=== PATIENT | male | born 1995 | race Caucasian/White ===

== ENCOUNTER 2017-05-18 07:37 | Emergency (ER) | payer BC, SELFPAY ==
[2017-05-18 07:38] VITALS: BP 136/88; PULSE 82; RESP 16; TEMP 36.8; O2SAT 99
--- NOTE | 2017-05-18 07:51 | RAD_ITS ---
STUDY: X-RAY CHEST REASON FOR EXAM: Male, 21 years old. 2 day history of cough. TECHNIQUE: PA and lateral views of the chest. COMPARISON: None. FINDINGS: The lungs are clear and expanded. There is no demonstrated pleural abnormality. Normal size heart. Normal mediastinum and aida. Normal visualized pulmonary arteries. Normal visualized aortic arch and descending thoracic aorta. Normal visualized thoracic spine. Normal visualized ribs, clavicles, and shoulders. There is no demonstrated abnormality of the visualized soft tissue structures of the upper abdomen. RAD/Chest PA and Lateral IMPRESSION: Normal x-ray examination of the chest. Electronically Signed: Alfredo Minaya MD at 8:58 EST Tel [phone], Service support ,
--- NOTE | 2017-05-18 08:10 | ED.DCSUM_ITS ---
- ER Visit Summary Date of Service: 05/18/17 Chief Complaint: Cough History of Present Illness: The patient is a [address] Gualberto Hare III. He reports that he has been sick off and on all winter. His most recent illness began 2 days ago. He developed a nonproductive cough. He denies any fever or chills. Is a sore throat that is 5 out of 10 severity. He has a headache that is 8 out of 10 severity. He denies any shortness of breath or myalgias. Physical Examination: Vitals: Stable. Afebrile. General: Well-nourished and well-developed. Head: Normocephalic atraumatic. HEENT: Pharyngeal erythema without tonsillar enlargement, exudate, or peritonsillar abscess. Neck: Supple, no lymphadenopathy. No JVD. Nontender. Cardiovascular: Regular rate and rhythm. No murmurs. Respiratory: No respiratory distress. Clear to auscultation bilaterally. Abdominal: Soft, nontender, nondistended, normal bowel sounds. No guarding, rebound, or peritoneal signs. Back: Nontender. Extremities: Nontender, no edema. Skin: Normal color, no rash. Neurologic: Alert and oriented ?3. Cranial nerves II through XII are intact. Normal strength and sensation. Psych: Normal affect. Test Results: Chest xray is normal. Emergency Department Course and Treatment: Patient presented to the emergency department specifically asking for an antibiotic. I had a prolonged discussion with him that it is not indicated and will not be helpful. Treatment Plan: Patient will be discharged with symptomatic care. Instructed to follow-up with Dr. Gualberto Hare III in 1 week if not improving. Disposition: To home in improved and stable condition. Impression: 1. URI. This note was generated with [employer] dictation software. It may contain incorrect words, spelling, and punctuation that were not noted in review of the chart prior to signing ED Disposition - Plan for ED Patient: Chief Complaint: Cold Sx Instructions: ED Upper Resp Infec No Abx Tx Referrals: Gualberto Hare III, MD [Primary Care Provider] - 1 Week if not improving
== END 2017-05-18 08:30 | disposition home or self-care (01) ==
LOC: ED 07:52
PROVIDERS: Emergency Provider Emergency Medicine; Family Provider Family Medicine; PCP Family Medicine
DX: J06.9 Acute upper respiratory infection, unspecified (principal); Z82.5 Family history of asthma and other chronic lower respiratory diseases
CPT/HCPCS: 71046; 99282

== ENCOUNTER 2018-06-04 18:25 | Emergency (ER) | payer BC, SELFPAY ==
[2018-06-04 18:25] VITALS: BP 151/99; PULSE 85; RESP 16; TEMP 37; O2SAT 100; BMI 22.8
--- NOTE | 2018-06-04 18:50 | CT_ITS ---
STUDY: CT BRAIN WITHOUT CONTRAST REASON FOR EXAM: Male, 22 years old. Fall down stairs, headache, memory loss, confusion, questionable loss of consciousness RADIATION DOSAGE (If Supplied By Facility): CTDIvol = ( 44.99 ) mGy, DLP = ( 796.11 ) mGycm TECHNIQUE: Transaxial CT imaging of the brain was performed without administration of intravenous contrast material. Individualized dose optimization techniques were used for this CT. COMPARISON: None. FINDINGS: Normal soft tissue structures. Normal calvarium. Normal size ventricles and extra-axial spaces for the patient's age. Normal white matter tracts of the cerebral hemispheres. Normal basal ganglia and thalami. Normal brainstem. Normal cerebellum. There is no intracranial hemorrhage. There are no findings of an acute ischemic infarction. Normal visualized paranasal sinuses. CT/Brain/Head without Contrast IMPRESSION: 1. No acute intracranial hemorrhage or mass effect. Electronically Signed: Jose Daniel Rodríguez MD at 19:20 EST , Service support ,
--- NOTE | 2018-06-04 18:51 | ED.VISSUMM ---
- ER Visit Summary Date of Service: 06/04/18 Chief Complaint: Head injury History of Present Illness: The patient is a 22 M who fell down some wooden steps on May 30. Patient does not remember if he got knocked out. He still has mild headache and difficulty concentrating. He states his hand eye coordination still is not normal. He has some mild nausea and light sensitivity. He is been taking Excedrin as needed for headache. Physical Examination: Vital signs significant for blood pressure 151/99, otherwise unremarkable. Head neck examination reveals no obvious external sign of trauma. No C-spine tenderness. Heart is regular rate and rhythm. Lungs sounds clear. Abdomen is soft nontender. Neuro exam reveals good strength and sensation on testing. Test Results: CT head shows no acute hemorrhage or mass-effect. Emergency Department Course and Treatment: Test results discussed with the patient. I did explain to him that he does have a concussion based on his symptoms. We will write him for anti-inflammatories. He will continue Excedrin if needed. He declines any nausea medicine. Treatment Plan: [] Disposition: Discharge Impression: Concussion This note was generated with [employer] dictation software. It may contain incorrect words, spelling, and punctuation that were not noted in review of the chart prior to signing ED Disposition - Plan for ED Patient: Referrals: Gualberto Hare III, MD [Primary Care Provider] -
--- NOTE | 2018-06-04 19:34 | ED.DEP ---
ED Disposition - Plan for ED Patient: Disposition: Home or Assisted Living Instructions: ED Concussion Prescriptions: Naproxen [Naprosyn] 500 mg PO BID PRN PRN #20 tablet PRN Reason: Pain Referrals: Gualberto Hare III, MD [Primary Care Provider] - 1 Week
[2018-06-04 20:13] VITALS: BP 136/82; PULSE 71; RESP 16; O2SAT 97
== END 2018-06-04 20:13 | disposition home or self-care (01) ==
PROVIDERS: Emergency Provider Emergency Medicine; Family Provider Family Medicine; PCP Family Medicine
DX: S06.0X9A Concussion with loss of consciousness of unspecified duration, initial encounter (principal); W10.8XXA Fall (on) (from) other stairs and steps, initial encounter; Y93.9 Activity, unspecified; Y92.9 Unspecified place or not applicable
CPT/HCPCS: 70450; 99282

== ENCOUNTER 2019-01-29 10:55 | Emergency (ER) | payer BC, SELFPAY ==
[2019-01-29 10:56] VITALS: BP 135/82; PULSE 106; RESP 14; TEMP 36.6; O2SAT 99; BMI 18.8
--- NOTE | 2019-01-29 11:08 | ED.RN ---
PER DR NEGRON CRISIS IS AWARE PT IS HERE AND NEEDS EVAL.
--- NOTE | 2019-01-29 11:09 | ED.DCSUM_ITS ---
- ER Visit Summary Date of Service: 01/29/19 Chief Complaint: Depressed and suicidal History of Present Illness: The patient is a 23 M history of depression. Patient is not real forthcoming with information. Reportedly police were called by the landlord who was concerned for the patient's mental well-being. There was some type of issue between the patient and his brother. Patient had loaded off a shotgun and a 22 pistol but did not make any threats to the police about this. There were weapons on scene. I did speak with community relations police lieutenant that was involved with the patient. At this time there is no known suicide note or text. Again patient is not real forthcoming with information. He denies any psychiatric meds currently. Was on antidepressants in the past. Physical Examination: Young male no acute distress vital signs stable afebrile. He is calm and cooperative at the time. HEENT exam unremarkable. Neck nontender. Lungs clear to auscultation bilaterally. Heart regular rhythm no murmur. Chest wall nontender. Abdomen soft nontender. Patient is moving all 4 extremities. Neurovascular intact. No edema. No wounds. No track espinosa. Back is nontender. Neurologically is awake and alert with no focal motor or sensory deficits. He is somewhat withdrawn. Test Results: Unremarkable white count of 9. Tox screen is negative.. Chemistries unremarkable except for a potassium of 3.0 and alcohol negative. Emergency Department Course and Treatment: Patient will undergo ED mental health evaluation. He has been pink slipped by the police department. I have crisis personnel already on page. Patient doing well on repeat exam at 12:21 PM. Treatment Plan: Discussed the patient's care with the counseling center personnel after they evaluating. I am concerned that he had loaded weapons at home and is not forthcoming with information. Both myself and the crisis personnel feel the patient should be admitted. He is medically cleared for psychiatric transfer and admission. Disposition: Evaluation for placement in psychiatric facility. Impression: Acute on chronic depression Suicidal ideation This note was generated with [employer] dictation software. It may contain incorrect words, spelling, and punctuation that were not noted in review of the chart prior to signing ED Disposition - Plan for ED Patient: Referrals: Gualberto Hare III, MD [STAFF PHYSICIAN] -
[2019-01-29 11:27] LABS: Absolute Lymphocyte Count 1.82 X10^3/uL (0.83-4.51); Absolute Neutrophil Count 6.8 X10^3/uL (2.0-7.7); Basophil# 0.04 X10^3/uL; Basophil% 0.4 % (0-1); Eosinophil# 0.02 X10^3/uL; Eosinophils% 0.2 % (0-5); Hematocrit 44.3 % (40-54); Lymphocyte # 1.82 X10^3/ul (4.0); Lymphocyte % 19.3 % (19-41); Mean Corp Hgb Conc 33.9 g/dL (32-36); Mean Corpuscular Hgb 28.6 pg (27.0-32.0); Mean Corpuscular Volume 84.4 fL (80-94); Mean Platelet Vol. 10.8 fl (6.2-12.0); Monocyte# 0.67 X10^3/uL; Monocyte% 7.1 % (0-10); NRBC Flagged by Analyzer 0 % (0-5); Neutrophil # 6.81 X10^3/uL (2.7-7.7); Neutrophil % 72.2 % (47-70); Platelet Count 260 K/mm3 (150-450); RBC Distribution Width CV 13.6 % (11.6-14.6); RBC Distribution Width SD 40.7 fl (35.1-43.9); Red Blood Count 5.25 M/mm3 (4.6-6.2); White Blood Count 9.4 K/mm3 (4.4-11.0)
--- NOTE | 2019-01-29 11:35 | NURSING ---
PT mother stopped by to see pt, pt does not want visitors. Informed mother we would call when he is ready to talk. Noemi (mother) [phone], George (father) [phone].
[2019-01-29 11:41] LABS: Anion Gap 7 (5-15); BUN 11 mg/dL (7-18); BUN/Creat Ratio 13.6 RATIO (10-20); Calcium,Total 9.2 mg/dL (8.5-10.1); Chloride 108 mmol/L (98-107); Creatinine, Serum 0.81 mg/dL (0.70-1.30); EST Glomerular Filtration Rate 126 mL/min (>60); Est Glom Filt Rate - Afr Amer 152 mL/min (>60); Estimated Creatinine Clearance 122.85 ml/min; Glucose 99 mg/dL (74-106); Sodium Level 145 mmol/L (136-145)
[2019-01-29 12:05] LABS: Alcohol, Blood (Medical)-Serum < 3.0 mg/dL
[2019-01-29 12:27] LABS: Amphetamine Urine VISTA NEGATIVE (<1000 ng/mL); Barbiturate Urine VISTA NEGATIVE (< 200 ng/mL); Benzodiazepine Urine VISTA NEGATIVE (< 200 ng/mL); Cocaine Urine VISTA NEGATIVE (< 300 ng/mL); Ecstacy Urine VISTA NEGATIVE (< 500 ng/mL); Methadone Urine VISTA NEGATIVE (< 300 ng/mL); PCP Urine VISTA NEGATIVE (< 25 ng/mL); THC Urine VISTA NEGATIVE (< 50 ng/mL); Vista UDS pH Range 6
--- NOTE | 2019-01-29 12:29 | ED.RN ---
CRISIS IS HERE
[2019-01-29 13:59] VITALS: BP 136/80; PULSE 99; RESP 16; O2SAT 99
[2019-01-29 14:00] VITALS: BP 136/80; PULSE 99; RESP 16; O2SAT 99
[2019-01-29 16:00] VITALS: RESP 16
[2019-01-29 17:50] VITALS: BP 138/80; PULSE 99; RESP 16; O2SAT 99
== END 2019-01-29 17:37 ==
PROVIDERS: Emergency Provider Emergency Medicine; Family Provider Family Medicine; PCP Family Medicine
DX: F32.9 Major depressive disorder, single episode, unspecified (principal); R45.851 Suicidal ideations
CPT/HCPCS: 80048; 80307; 80320; 85025; 99284; G0480

== ENCOUNTER 2019-10-21 06:48 | Emergency (ER) | payer OTHER, SELFPAY ==
[2019-10-21 06:49] VITALS: BP 119/63; PULSE 68; RESP 20; TEMP 37.1; O2SAT 100; BMI 22.1
--- NOTE | 2019-10-21 06:57 | ED.DCSUM_ITS ---
History of Present Illness Chief Complaint: Abd Pain Informant: Patient Onset: Today Context: Gradual Onset Timing: Waxes and wanes Current Severity: Moderate Maximum Severity: Severe Narrative: Patient present secondary to lower abdominal pain and vomiting. States he did not have much of an appetite last evening but did eat dinner. Actually and this morning he woke with severe lower abdominal pain and vomiting. He did have a normal bowel movement. He states he felt warm but did not measure a fever. He denies any prior abdominal surgeries. Past Medical History - Allergies and Home Meds Allergies/Adverse Reactions: Allergies No Known Allergies Allergy (Verified 10/21/19 06:53) Primary Care Physician: Gualberto Hare III, MD [Primary Care Provider] - Past Medical History: None Smoking Status: Never smoker Alcohol: None Review of Systems General: Reports: Fever, Subjective Eyes: Denies: Visual changes - bilaterally ENT: Denies: Bilateral ear pain Cardiovascular: Denies: Chest pain Respiratory: Denies: Dyspnea, Cough Gastrointestinal: Reports: Abdominal pain, Nausea, Vomiting. Denies: Diarrhea Genitourinary: Denies: Dysuria Musculoskeletal: Denies: Swelling, Extremity Pain Skin: Denies: Rash Hematologic: Denies: Easy bruising, Easy bleeding Allergy: Denies: Uticaria Physical Exam Vital Signs/Narrative: Vital Signs Temp Pulse Resp BP Pulse Ox 10/21/19 06:49 98.8 F 68 20 H 119/63 100 Inital Vital Signs reviewed: Yes General: Well nourished, Well developed Head: Normocephalic ENT: Moist mucous membranes Neck: Supple Cardiovascular: Regular rate, Regular rhythm Respiratory: No distress, CTA bilaterally Abdomen: Soft, Tender - Moderate diffuse tenderness to palpation., Guarding - Voluntary guarding, Hypoactive bowel sounds Extremities: Nontender Skin: Normal color Neurological: Alert, Oriented x3 Psychological: - - Anxious Diagnostic/Tx/Re-eval Impressions Abdomen/Pelvis CT 10/21/19 07:35 IMPRESSION: Normal enhanced CT of the abdomen and pelvis. Electronically Signed: Raheem Cameron, at 8:22 EDT Tel , Service support , 10/21/19 07:35 Abdomen/Pelvis W IV Cont ONLY [CT] Stat Laboratory Results 10/21/19 10/21/19 10/21/19 06:58 06:58 10:06 WBC 8.2 RBC 5.08 Hgb 14.7 Hct 43.1 MCV 84.8 MCH 28.9 MCHC 34.1 RDW Std Deviation 35.7 RDW Coeff of Monalisa 11.7 Plt Count 223 MPV 11.2 Immature Gran % (Auto) 0.200 Neut % (Auto) 78.8 H Lymph % (Auto) 15.4 L [place] % (Auto) 4.9 Eos % (Auto) 0.5 Baso % (Auto) 0.2 Absolute Neuts (auto) 6.5 Absolute Lymphs (auto) 1.26 Nucleated RBC % 0 Sodium 140 Potassium 3.5 Chloride 106 Carbon Dioxide 27.0 Anion Gap 7 BUN 17 Creatinine 0.89 Estim Creat Clear Calc 116.22 Est GFR (MDRD) Af Amer 135 Est GFR (MDRD) Non-Af 111 BUN/Creatinine Ratio 19.0 Glucose 114 H Calcium 9.7 Total Bilirubin 0.90 AST 15 ALT 21 Alkaline Phosphatase 63 Total Protein 8.3 H Albumin 5.2 H Globulin 3.1 Albumin/Globulin Ratio 1.7 Lipase 138 Urine Color Yellow Urine Clarity Clear Urine pH 7.0 Ur Specific [place] 1.010 Urine Protein 15 H Urine Glucose (UA) Normal Urine Ketones 150 H Urine Occult Blood Negative Urine Nitrite Negative Urine Bilirubin Negative Urine Urobilinogen Normal Ur Leukocyte Esterase 25 H Urine RBC 0 SEEN Urine WBC 0-5 SEEN Ur Squamous Epith Cells 0-5 SEEN Urine Bacteria RARE Urine Mucus 0 SEEN - Medical Decision Making Patient initially given IV fluids along with morphine, Toradol, and Zofran. On repeat evaluation he reported only minimal improvement in his pain. He was given IM Bentyl and IV Dilaudid. CT scan was performed. At this time patient is resting comfortably. He is received 1 dose of p.o. [place] here and tolerated that well. He continues to have some pain and cramping in his lower abdomen. Lab work, urinalysis, and CT imaging is reviewed with the patient and family at bedside. He will be given prescriptions for [place], Zofran, and Bentyl. He was given return instructions. ED Disposition - Plan for ED Patient: Disposition: Home or Assisted Living Diagnosis: Abdominal pain Instructions: ED Unknown Causes of Abdominal Pain Male Prescriptions: Dicyclomine HCl [Bentyl] 20 mg PO TIDAC #20 cap Transmission Status: Pending to [facility] Hydrocodone Bitart/Apap 5-325 [[place] 5MG-325MG] 1 tablet PO Q6H PRN PRN 3 Days #10 tablet PRN Reason: Pain Transmission Status: Sent to [facility] Ondansetron [Zofran Odt] 4 mg PO Q8H PRN PRN #10 tab PRN Reason: Nausea Transmission Status: Pending to [facility] Referrals: Gualberto Hare III, MD [Primary Care Provider] - 3-5 Days if not improving
[2019-10-21] MEDS: Ketorolac 30 MG/ML Syringe IV (07:00)
[2019-10-21] MEDS: Morphine 4 MG/ML Syringe IV (07:00)
[2019-10-21] MEDS: 0.9% Normal Saline 1,000 ML 150 ML IV (07:03)
[2019-10-21] MEDS: Ondansetron 4 MG/2 ML Vial IV (07:04)
[2019-10-21 07:12] LABS: Absolute Lymphocyte Count 1.26 X10^3/uL (0.83-4.51); Absolute Neutrophil Count 6.5 X10^3/uL (2.0-7.7); Basophil# 0.02 X10^3/uL; Basophil% 0.2 % (0-1); Eosinophil# 0.04 X10^3/uL; Eosinophils% 0.5 % (0-5); Hematocrit 43.1 % (40-54); Hemoglobin 14.7 g/dL (13.0-16.5); Lymphocyte # 1.26 X10^3/ul (4.0); Lymphocyte % 15.4 % (19-41); Mean Corp Hgb Conc 34.1 g/dL (32-36); Mean Corpuscular Hgb 28.9 pg (27.0-32.0); Mean Corpuscular Volume 84.8 fL (80-94); Mean Platelet Vol. 11.2 fl (6.2-12.0); Monocyte% 4.9 % (0-10); NRBC Flagged by Analyzer 0 % (0-5); Neutrophil # 6.45 X10^3/uL (2.7-7.7); Neutrophil % 78.8 % (47-70); Platelet Count 223 K/mm3 (150-450); RBC Distribution Width CV 11.7 % (11.6-14.6); RBC Distribution Width SD 35.7 fl (35.1-43.9); Red Blood Count 5.08 M/mm3 (4.6-6.2); White Blood Count 8.2 K/mm3 (4.4-11.0)
[2019-10-21 07:29] LABS: ALB/GLOB Ratio 1.7 RATIO (0.9-2.4); AST(SGOT) 15 U/L (15-37); Alanine Aminotransfer ALT/SGPT 21 U/L (16-61); Albumin, Serum 5.2 g/dL (3.2-5.0); Alkaline Phosphatase 63 U/L (45-117); Anion Gap 7 (5-15); BUN 17 mg/dL (7-18); Calcium,Total 9.7 mg/dL (8.5-10.1); Chloride 106 mmol/L (98-107); Creatinine, Serum 0.89 mg/dL (0.70-1.30); EST Glomerular Filtration Rate 111 mL/min (>60); Est Glom Filt Rate - Afr Amer 135 mL/min (>60); Estimated Creatinine Clearance 116.22 ml/min; Globulin 3.1 g/dL (2.2-4.2); Glucose 114 mg/dL (74-106); Lipase 138 U/L (73-393); Potassium 3.5 mmol/L (3.5-5.1); Protein, Total 8.3 g/dL (6.4-8.2); Sodium Level 140 mmol/L (136-145)
--- NOTE | 2019-10-21 07:35 | CT_ITS ---
STUDY: CT ABDOMEN AND PELVIS WITH CONTRAST REASON FOR EXAM: Male, 24 years old. ABD PAIN, VOMITING RADIATION DOSAGE (If Supplied By Facility): CTDIvol = ( 6.02 ) mGy, DLP = ( 285.95 ) mGycm TECHNIQUE: Transaxial images were obtained from the dome of the diaphragm to the symphysis pubis without oral contrast. IV 100mL Isovue-300 was administered. Sagittal and coronal images were reconstructed. Individualized dose optimization techniques were used for this CT. COMPARISON: None. FINDINGS: The visualized lung bases are unremarkable. The visualized portions of the heart are within normal limits. Normal liver. Normal gallbladder and extrahepatic biliary system. Normal spleen. Normal pancreas. Normal bilateral adrenal glands. Normal right kidney. Normal left kidney. Normal visualized stomach. Normal small intestine. Normal colon. The appendix is visualized and appears normal. Normal abdominal aorta. Normal inferior vena cava. Normal retroperitoneum. Normal urinary bladder. Normal abdominal wall. There is mild chronic compression deformity of T12 appearing stable from 2013. Otherwise normal osseous structures. CT/Abdomen/Pelvis W IV Cont ONLY IMPRESSION: Normal enhanced CT of the abdomen and pelvis. Electronically Signed: Raheem Cameron, at 8:22 EDT Tel , Service support ,
[2019-10-21] MEDS: HYDROmorphone 0.5 MG/0.5 ML SYRINGE IV (07:43)
[2019-10-21] MEDS: Dicyclomine 20 MG/2 ML Vial IM (07:43)
--- NOTE | 2019-10-21 08:47 | ED.RN ---
PT INFORMED AWAITING URINE SAMPLE. PT STATES UNABLE TO URINATE AT THIS TIME.
[2019-10-21 08:54] VITALS: RESP 18
[2019-10-21] MEDS: HYDROcodone Bitartrate/Apap 5/325 Tablet PO (09:15)
[2019-10-21] MEDS: Ondansetron ODT 4 MG Tablet PO (09:16)
[2019-10-21 10:09] VITALS: RESP 20
[2019-10-21 10:13] LABS: Mucous, Urine 0 SEEN /hpf (<or=2+); Red Blood Cells-Urine 0 SEEN /hpf (0-5)
[2019-10-21 10:16] LABS: Color, Urine Yellow (Yellow); Glucose, Dipstick Normal (Normal); Leukocyte Esterase-Dipstick 25 /ul (Negative); Nitrite-Dipstick Negative (Negative); Occult Blood-Urine Negative /ul (Negative); Protein-Dipstick 15 mg/dl (Negative); Urine Bilirubin Dipstick Negative (Negative); Urine Clarity Clear (Clear); Urine Urobilinogen Normal (Normal)
[2019-10-21 10:23] LABS: Ketone-Dipstick 150 mg/dl (Negative)
[2019-10-21 10:31] LABS: Bacteria RARE /hpf (None Seen); Squamous Epithelial Cells - UA 0-5 SEEN /hpf (0-5); White Blood Cells 0-5 SEEN /hpf (0-5)
[2019-10-21 11:04] VITALS: BP 102/79; PULSE 81; RESP 16; O2SAT 99
--- NOTE | 2019-10-21 11:05 | ED.RN ---
THIS NURSE REVIEWED D/C INSTRUCTIONS WITH PT. PT VERBALIZED UNDERSTANDING OF INSTRUCTIONS. IV D/C. PT DENIES FURTHER NEEDS OR QUESTIONS AT THIS TIME
== END 2019-10-21 11:06 | disposition home or self-care (01) ==
PROVIDERS: Emergency Provider Emergency Medicine; PCP Family Medicine
DX: R10.30 Lower abdominal pain, unspecified (principal)
CPT/HCPCS: 74177; 80053; 81001; 83690; 85025; 96361; 96374; 96375; 99285; J7030; Q9967; A4216; J2405

== ENCOUNTER 2019-10-22 00:59 | Inpatient (IN) | payer OTHER, SELFPAY ==
[2019-10-21 06:49] VITALS: BMI 22.1
[2019-10-22] VITALS (7 sets, daily range): BP systolic 117–128; BP diastolic 52–75; PULSE 50–78; RESP 16–18; TEMP 36.6–37.8; O2SAT 96–100; BMI 21.9; BMI 21.2
--- NOTE | 2019-10-22 01:35 | ED.VISSUMM ---
- ER Visit Summary Date of Service: 10/22/19 Chief Complaint: Diffuse abdominal pain History of Present Illness: The patient is a 24 M who significant past medical or surgical history. Patient's abdominal pain before they thought potentially could be Crohn's disease but is never had a thorough evaluation for that. Is never had any abdominal surgeries and has never had any upper or lower endoscopy. States on evening started having abdominal pain which continued on Wednesday and Wednesday. Was seen in the emergency department on October 20 and extensive work-up done at that time including a CAT scan which was negative. He was discharged home with Bentyl, [place] and Zofran. States he has continued diffuse abdominal pain with nausea and vomiting. No fever. No dysuria. No trauma. Physical Examination: Well-appearing young male accompanied by his mom vital signs are stable afebrile. He does not look septic or toxic or severely dehydrated. H EENT exam unremarkable. Moist weeks membranes. Neck nontender no lymphadenopathy. Lungs clear to auscultation bilaterally. Heart regular rhythm no murmur rate about 65. Abdomen soft. Nondistended. No hernia or mass. No signs of obstruction. Diffusely tender more so in the left side in the left lower quadrant. No signs of obstruction. No specific McBurney's sign tenderness or Robb sign tenderness. No signs of trauma. Normal bowel sounds soft and flat. Extremities moves all 4 neurovascular intact. No edema. Back nontender. Neurologically is awake alert with no focal motor deficits. Test Results: Due to his most recent ER evaluation within the last 24 hours. He had labs including a CBC, chemistry liver lipase all were unremarkable. CAT scan of his abdomen pelvis again was unremarkable. I do not think those need to be repeated at this time. Emergency Department Course and Treatment: Patient will be treated with IV morphine, Phenergan and Toradol. IV fluids. P.o. challenge. Reassess. I reviewed his prior work-up I do not think he needs to be repeated. He has a history of possible Crohn's is not been evaluated for the past. He received multiple doses of pain and nausea medication. Including morphine, Toradol Phenergan and Zofran. He is doing well on repeat exam at 3:53 AM. Abdomen is benign nondistended. Explained to him he needed no further imaging and met no criteria for admission. He can do outpatient follow-up for possible further evaluation of abdominal pain of uncertain etiology. Treatment Plan: Patient had continued intractable vomiting. When his mom was not present in room he began speaking with the nurse and explained to her that he does have a history of heroin addiction and uses daily. Has been trying to detox at home the last 24 to 48 hours and is been unable to control his nausea and vomiting. He is requesting detox. He initially was not forthcoming with this information. Disposition: admission Impression: Acute abdominal pain uncertain etiology Acute intractable nausea and vomiting Requesting detox from heroin and going through acute heroin withdrawal This note was generated with [employer] dictation software. It may contain incorrect words, spelling, and punctuation that were not noted in review of the chart prior to signing ED Disposition - Plan for ED Patient: Disposition: Home or Assisted Living
[2019-10-22] MEDS: 0.9% Normal Saline 1,000 ML 1000 ML IV (01:51)
[2019-10-22] MEDS: Morphine 4 MG/ML Syringe IV (01:51)
[2019-10-22] MEDS: Ketorolac 30 MG/ML Syringe IV (01:52)
[2019-10-22] MEDS: proMETHazine 25 MG/ML Syringe 12.5 MG IV (01:52)
[2019-10-22] MEDS: morphine 8 MG/ML Syringe 6 MG IV (02:35)
[2019-10-22] MEDS: Ondansetron 4 MG/2 ML Vial IV ×4 (03:24→23:02)
--- NOTE | 2019-10-22 03:55 | ED.DEP ---
ED Disposition - Plan for ED Patient: Disposition: Home or Assisted Living Instructions: ED Unknown Causes of Abdominal Pain Male Referrals: Gualberto Hare III, MD [Primary Care Provider] - As soon as possible Additional Instructions: Fluids and rest. Tylenol and Motrin for pain. Zofran which I believe he already have at home for nausea. You may swallow it or hold it on your tongue to let it dissolve if you are too nauseated to swallow. Call and follow-up with Dr. Gualberto Hare for further evaluation of your abdominal pain of uncertain etiology.
--- NOTE | 2019-10-22 04:13 | PCM.HP.STD ---
Problem List (1) Narcotic withdrawal Status: Acute History of Present Illness Date of Admission: 10/22/19 Chief Complaint: Heroin withdrawal The patient is a 24 year old M with a significant history of heroin abuse; and depression who presents to the emergency department with withdrawal symptoms. His symptoms started about 3 days ago. Last time he used heroin was earlier in the day 3 days ago and his symptoms started later the same day. He snorts heroin. He reports abdominal pain; nausea and vomiting. Reportedly he is vomiting every 30 minutes. Patient reports headache; diarrhea; restless legs and chills. Patient's notes about 1 g of heroin per day ($100). He is self-employed and he works as a santillan. This is a second visit to emergency department in the past 24 hours. On the first visit work-up including a CT of his abdomen and pelvis was unremarkable. With the second visit just after his family had left the room patient reported that he thinks he is withdrawing from heroin. So until the patient later divulge his drug use and possible withdrawal to the nurse who later informed the MD the thought was that may be patient was having a recurrence of Crohn's disease. As a child a probable Crohn's disease diagnosis was considered without a real confirmation. Patient reported that in the past he went to [place] for detoxification. Past Medical History Medical History: Medical History (Last Updated 10/22/19 @ 05:[address] Nico Herrera MD) Denies any previous medical history Allergies No Known Allergies Allergy (Verified 10/21/19 06:53) Surgical History: no surgical history Psychiatric History: Anxiety, Depression Smoking Status: Former smoker Alcohol: Sober - *Family History Maternal History Items: - - Chronic pain Paternal History Items: - - Alcoholism Review of Systems Constitutional: Reports: Chills. Denies: Fever, Weight Change HEENT: Reports: Head Aches. Denies: Sinus Congestion, Sinus Drainage Cardiovascular: Denies: Chest Pain, Palpitations Respiratory: Denies: Cough, Shortness of breath at rest, Sputum production Gastrointestinal: Reports: Abdominal Pain, Diarrhea, Nausea, Vomiting Genitourinary: Denies: Dysuria Musculoskeletal: Denies: Joint Pain, Joint Tenderness Skin: Denies: Rash, Wounds Neurological: Denies: Numbness, Tingling, Focal weakness Psychiatric: Reports: Anxiety, Depression. Denies: Homicidal Ideations, Suicidal Ideations Hematologic/ Lymphatic: Denies: Easy Bruising, Easy Bleeding VTE Information - Inpt Only VTE Present on Admission: No VTE Mechan Device Prophylaxis: None VTE Pharm Prophylaxis ordered?: No Reason prophylaxis not ordered:: Treatment Not Indicated - Low risk Patient Problems: Active and Suspected Problems (Last Updated 10/22/19 @ 05:[address] Nico Herrera MD) Narcotic withdrawal (Acute) - Physical Exam Vitals/I&O's: Vital Signs Temp Pulse Resp BP Pulse Ox 98.2 F 66 16 127/68 H 96 10/22/19 01:00 10/22/19 01:00 10/22/19 01:00 10/22/19 01:00 10/22/19 01:00 Oxygen Delivery Method Room Air Weight: 63.7 kg Body Mass Index (BMI) 21.9 Intake and Output for Last 24 Hours 10/20/19 10/21/19 10/22/19 23:59 23:59 23:59 Intake Total 1000 / 1000 Balance 1000 / 1000 General: Alert, Oriented x3, Cooperative HEENT: Atraumatic, PERRLA, EOMI, Normocephalic Neck: Supple, No JVD, Negative Carotid Bruits Lungs: Clear to auscultation, Normal air movement, No rhonchi, No wheeze, No rales Cardiovascular: Regular rate, Regular Rhythm, Normal S1, Normal S2, No murmurs Abdomen: Bowel Sounds Present, Soft, Non Tender Extremities: No edema, Capillary Refill Less than 3 Seconds Skin: No rashes, No breakdown Musculoskeletal: No Tenderness to Palpation of Joints or Extremities Neurological: Cranial nerves II-XII grossly intact Psych/Mental Status: Normal Affect, Appropriate Assessment/Plan All Active Problems (Last Updated 10/22/19 @ 05:[address] Nico Herrera MD) Narcotic withdrawal (Acute) The patient is a 24 year old M with a significant history of heroin abuse; and depression who presents to the emergency department with withdrawal symptoms. Narcotic dependence and withdrawal Will start patient on Subutex taper with other adjunctive medications Zofran IV PRN Normal saline with 40 mEq of potassium x1 L. Patient mother was waiting to talk to a physician to know whether a Crohn's work-up will be done with hospitalization. With patient requesting that he does not want his family to know the real reason of hospitalization; deferred to patient to talk to his mother. DVT prophylaxis Low risk Encouraged to ambulate Inpatient E&M: 44511 Init Hosp L3
--- NOTE | 2019-10-22 04:20 | ED.RN ---
PT NOTIFIED THIS RN THAT THIS IS DAY 2 OF DETOX FROM HEROINE, STATES HE WAS TRYING TO DETOX ON HIS OWN AND NOW HE KNOWS HE IS UNABLE TO DO IT ON HIS OWN. WOULD LIKE TO BE ADMITTED TO OUR DETOX PROGRAM.
[2019-10-22] MEDS: LORazepam 2 MG/ML Syringe 1 MG IV (04:40)
[2019-10-22] MEDS: Loperamide 2 MG Capsule PO (06:05)
[2019-10-22] MEDS: Methocarbamol 750 MG Tablet 1500 MG PO (06:05)
[2019-10-22] MEDS: 0.9% Saline Lock 10 ML Syringe IV ×5 (06:05→23:02)
[2019-10-22] MEDS: Dicyclomine 10 MG Capsule 20 MG PO ×3 (06:05→22:01)
[2019-10-22] MEDS: proCHLORPERazine 10 MG/2 ML Vial 5 MG IV ×3 (06:05→22:03)
[2019-10-22] MEDS: Potassium Chloride 40 MEQ in 0.9% Normal Saline 1,000 ML 75 MEQ IV (06:05)
[2019-10-22] MEDS: Buprenorphine HCl 2 MG TAB.SUBL SL ×3 (06:20→22:02)
[2019-10-22 06:25] LABS: Bedside Glucose 96 mg/dL (70-110)
--- NOTE | 2019-10-22 09:58 | PCM.PN.BLA ---
Progress Note This is a 24 years old male patient admitted because of acute opiate withdrawal for medical stabilization. He complained of vague upper abdominal pain that has been going on intermittently for the last several months. He has seen Dr. Rowdy Hare, concerning that he may have Crohn's disease but never had endoscopy or biopsies. He had a CT scan abdomen and pelvis with IV contrast done on October 21, 2019 that showed no acute findings, it was normal. Routine blood work was remarkable for hypokalemia which was replaced and corrected. LFT and lipase were normal. He is on Subutex taper for opioid withdrawal. His vital signs are stable. Plan to continue same treatment.
[2019-10-22] MEDS: Ondansetron ODT 4 MG Tablet 8 MG PO ×2 (10:15→17:48)
--- NOTE | 2019-10-22 13:29 | NURSING ---
pt is not listed in the directory and mother called the floor trying to get a hold of him. When she was told he was not here, she got upset with this nurse. His grandmother dropped him off last night in the ER and they said they were going to admit him. This nurse repeated to mother that patient was not here. Mother wanted to speak to ER so this nurse sent phone call to ED. This nurse got a call from [employer] roller covers supervisor and was informed that Mother had called him and was looking for pt. This nurse went back to talk to pt to see what he wanted us to do, Mother is listed as a contact on demographics. Patient stated that he was fine being in the hospital directory now and was okay to have mother know that he is here, Just don't tell her why I am here. Don't use the H word. This nurse clarified by saying you mean Heroin. Pt stated yes then stated, don't tell her that I am in detox either. Pt states that his family is noisy. Reassured pt that staff is not aloud to tell reason why he is here. This nurse asked pt if he would be willing to talk to his mother. Pt agreed and came out at the desk to use the phone. This nurse did not hear full conversation but patient told Mother that we couldn't find him in the hospital because of all the COVID going around.
[2019-10-22] MEDS: Acetaminophen 325 MG Tablet 650 MG PO (22:17)
[2019-10-22] MEDS: hydrOXYzine PAM 25 MG Capsule 50 MG PO (22:59)
[2019-10-23] MEDS: cloNIDine HCl 0.1 MG Tablet PO (02:15)
[2019-10-23] MEDS: 0.9% Saline Lock 10 ML Syringe IV ×5 (02:15→23:04)
[2019-10-23] MEDS: proCHLORPERazine 10 MG/2 ML Vial 5 MG IV (02:15)
[2019-10-23 02:28] VITALS: BP 116/60; PULSE 55; RESP 16; TEMP 37.4; O2SAT 98
[2019-10-23] MEDS: Methocarbamol 750 MG Tablet 1500 MG PO (05:51)
[2019-10-23] MEDS: Loperamide 2 MG Capsule PO (05:54)
[2019-10-23] MEDS: Dicyclomine 10 MG Capsule 20 MG PO (05:54)
[2019-10-23] MEDS: Ondansetron ODT 4 MG Tablet 8 MG PO (05:55)
[2019-10-23] MEDS: Buprenorphine HCl 2 MG TAB.SUBL SL ×3 (06:11→22:59)
[2019-10-23 07:49] VITALS: BP 123/68; PULSE 74; RESP 18; TEMP 36.9; O2SAT 98
[2019-10-23] MEDS: proMETHazine 25 MG/ML Syringe 12.5 MG IV (07:54)
--- NOTE | 2019-10-23 08:13 | PN_ITS ---
Patient Problems: Active and Suspected Problems (Last Updated 10/22/19 @ 05:[address] Nico Herrera MD) Narcotic withdrawal (Acute) Subjective: Chief complaint: Follow-up after admission for acute opioid withdrawal. Patient seen and examined. No acute events overnight. Today, is complaining of persistent nausea and occasional vomiting. Abdominal pain improved. Last night, he did not sleep much, still having restless anxiety because of withdrawal. His vital signs are stable. - Physical Exam Vitals/I&O's: Vital Signs Temp Pulse Resp BP Pulse Ox 98.5 F 74 18 123/68 H 98 10/23/19 07:49 10/23/19 07:49 10/23/19 07:49 10/23/19 07:49 10/23/19 07:49 Oxygen Delivery Method Room Air Weight: 135 lb 5.821 oz Body Mass Index (BMI) 21.2 Intake and Output for Last 24 Hours 10/21/19 10/22/19 10/23/19 23:59 23:59 23:59 Intake Total 1596.25 / 1671.25 195 / 195 Output Total 200 / 200 Balance 1596.25 / 1571.25 -5 / -5 General: Alert, Oriented x3, Cooperative, No apparent distress HEENT: Atraumatic, PERRLA, EOMI, Normocephalic Oral: Moist Mucosa, No Gingival or Mucosal Lesions/ Ulcerations Neck: Supple, No JVD, Negative Carotid Bruits, Trachea Midline, Thyroid Normal Size and Texture Lungs: Clear to auscultation, Normal air movement, No rhonchi, No wheeze, No rales Cardiovascular: Regular rate, Regular Rhythm, Normal S1, Normal S2, PMI Normal Abdomen: Bowel Sounds Present, Soft, Non Tender, Non-Distended, No Hepato- splenomegaly Extremities: No clubbing, No cyanosis, No edema Skin: No rashes, No breakdown Lymphatic: No Cervical, Supraclavicular, or Inguinal Adenopathy Neurological: Cranial nerves II-XII grossly intact, Neuro grossly intact Psych/Mental Status: Normal Affect, Appropriate, Alert and oriented to time, place, person, mood and affect Current Medications Acetaminophen (Tylenol) 650 mg PO Q6H PRN PRN PRN Reason: Pain Score 1-10/Temp > 100.7 F Last Admin: 10/22/19 22:17 Dose: 650 mg Documented by: Buprenorphine HCl (Buprenorphine Hcl) 2 mg SL Q8H INDRA; Taper Stop: 10/25/19 06:14 Last Admin: 10/23/19 06:11 Dose: 2 mg Documented by: Clonidine (Catapres) 0.1 mg PO Q8H PRN PRN PRN Reason: RESTLESSNESS Last Admin: 10/23/19 02:15 Dose: 0.1 mg Documented by: Dextrose (D50w Syringe) 0 gm IV X1 PRN; Protocol PRN Reason: Hypoglycemia Dicyclomine HCl (Bentyl) 20 mg PO Q6H PRN PRN PRN Reason: Abdominal Discomfort Last Admin: 10/23/19 05:54 Dose: 20 mg Documented by: Gabapentin (Neurontin) 300 mg PO Q8H PRN PRN PRN Reason: moderate to severe anxiety Glucagon () 1 mg IM .X1 PRN PRN Reason: Hypoglycemia Hydroxyzine Pamoate (Vistaril Pamoate Capsule) 50 mg PO Q6H PRN PRN PRN Reason: mild anxiety Last Admin: 10/22/19 22:59 Dose: 50 mg Documented by: Loperamide HCl (Imodium) 2 mg PO Q4H PRN PRN PRN Reason: LOOSE STOOLS Last Admin: 10/23/19 05:54 Dose: 2 mg Documented by: Melatonin (Melatonin) 3 mg PO QHS PRN PRN PRN Reason: INSOMNIA Methocarbamol (Methocarbamol) 1,500 mg PO Q6H PRN PRN PRN Reason: MUSCLE SPASM Last Admin: 10/23/19 05:51 Dose: 1,500 mg Documented by: Ondansetron HCl (Zofran) 4 mg IV Q6H PRN PRN PRN Reason: NAUSEA/VOMITING Prochlorperazine Edisylate (Compazine Iv) 5 mg IV Q4H PRN PRN PRN Reason: Breakthrough nausea/vomiting Last Admin: 10/23/19 02:15 Dose: 5 mg Documented by: Sodium Chloride () 10 - 40 ml IV UD PRN PRN Reason: SALINE FLUSH Last Admin: 10/23/19 07:54 Dose: 10 ml Documented by: Trazodone HCl (Desyrel) 100 mg PO QHS PRN PRN PRN Reason: INSOMNIA Medical Necessity - Tobacco Use Smoking Status: Never smoker Assessment/Plan All Active Problems (Last Updated 10/22/19 @ 05:[address] Nico Herrera MD) Narcotic withdrawal (Acute) This is a 24 years old male patient presented to the emergency room because of abdominal pain, had extensive work-up done that revealed no acute pathology and patient was interested in medical stabilization from acute opioid withdrawal. #1 acute opioid withdrawal: He is on tapering Subutex, PRN Catapres, Bentyl, Neurontin, Vistaril, Imodium, methocarbamol, Zofran and trazodone. Routine blood work from October 21, 2019 reviewed and was unremarkable. LFT and lipase also was done and was unremarkable. His vital signs are stable. Plan to continue same treatment. #2 abdominal pain/nausea/vomiting: Unclear etiology, could be related to acute withdrawal symptoms. Patient had CT scan abdomen and pelvis with IV contrast on October 21, 2019 that revealed normal abdomen pelvis, no evidence of acute findings. As mentioned above, routine blood work as well as LFT and lipase were normal. Patient reported that he has been following up with Dr. Rowdy Hare as outpatie nt and there was a concern that he may have Crohn's disease but never went for endoscopy or biopsies. Recommend to avoid Dr. Hare as outpatient. #3 DVT prophylaxis: Low risk patient, no prophylaxis indicated. This note was generated with [employer] dictation software. It may contain incorrect words, spelling, and punctuation that were not noted in checking the note before signing. Inpatient E&M: 04975 Subs Hosp L2
--- NOTE | 2019-10-23 08:54 | CASEMGMT ---
Giselle Lyons from [facility] will be here this afternoon to see pt. PHILLIP Mccain
[2019-10-23] MEDS: Famotidine 200 MG/20 ML MDV 20 MG in 0.9% Normal Saline (Pres. free 8 ML 300 MG IV ×2 (10:28→23:00)
[2019-10-23 14:49] VITALS: BP 125/67; PULSE 57; RESP 16; TEMP 36.9; O2SAT 99
--- NOTE | 2019-10-23 15:13 | CHAPLAIN ---
Type of Pastoral Visit _x__ Initial Visit ___ Follow-up Visit ___ On-call Visit ___ General Patient Visit ___ Spiritual Assessment ___ Family Conference ___ Bereavement ___ Rapid Response ___ Code Blue ___ Other (describe below) Pastoral Care Referral From _x__ Patient ___ Family ___ Nurse ___ Physician ___ Associate Merchandise Planner ___ Hemmer [employer]ch ___ Other (describe below) Sacrament/Intervention _x__ Active listening ___ Anointing ___ Confucianism ___ Bereavement ___ Communion _x__ Merry exploration ___ _x__ Life review _x__ Prayer ___ Reconciliation ___ Sacrament of Sick _x__ Supportive presence ___ Wedding ___ Other (describe below) Pastoral Comments met with patient, introducing self and role at hospital; pt sat up in bed and said good, it is boring in here looking at clock all day and began to explain that he was here to detox and realized that he needed help as to not be able to do it at home; pt said that he had used drugs before but had been clean for 5 or 6 months until CoVid 19 hit; pt states that he has not told many people about his problem including family; pt said that I just joined the sikhism before CoVid and was doing so good, happiest time of life, but started using again; 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
--- NOTE | 2019-10-23 15:15 | ADDICTION ---
This proposal writer met with patient in his room to complete ASAM assessment and discharge planning as patient plans to discharge on 10/24/2019. Patient was cooperative throughout visit and appeared to share his AoD use history honestly. Patient shared that he is self-referred for treatment and is ready and willing to address problematic behaviors. Patient was amiable to a 12 pm assessment appointment with this proposal writer on 10/24/2019 at [facility]. [facility] will provide transportation to this appointment from [facility] upon discharge. This proposal writer completed an ASAM assessment, DUDIT assessment and MSE during this visit. He was alert/oriented x4. ASAM LOC: 4.0 Medically Managed Intensive Inpatient Services 1. Acute Intoxication and/or Withdrawal Potential Reports last day of use was 10/20/2019. 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 Reports using 1 gram per day. Reports that he has been experiencing the following symptoms of withdrawal: vomiting, nausea, stomach pain, headaches, agitation 2. Biomedical Conditions/Complications No medical history reported or identified in patient's chart. 3. Emotional, Behavioral, Cognitive Conditions/Complications E: Emotionally regulated, reports no SI or HI, no concerns re: impulse control B: Able to care for self, no threat to self/others by his report C: Alert/oriented, no psychosis noted. 4. Readiness to Change Self-referred for treatment, willing to engage in ongoing services with [facility]. 5. Relapse/Continued Use/Continued Problem Potential Currently on Subutex taper by his report. Reports limited coping skills/ relapse prevention skills. Patient is at a high risk of relapse. 6. Recovery Environment Lives independently, has used in home, reports no engagement with mutual aid, looking for a norm-based recovery and is willing to engage with supports. No probation/ CSB reported.
[2019-10-23] MEDS: Ondansetron 4 MG/2 ML Vial IV (18:16)
[2019-10-23 23:00] VITALS: BP 121/66; PULSE 58; RESP 16; TEMP 37.3; O2SAT 98
[2019-10-23] MEDS: traZODone 100 MG Tablet PO (23:11)
[2019-10-24 02:46] VITALS: BP 111/69; PULSE 62; RESP 16; TEMP 36.9; O2SAT 97
[2019-10-24] MEDS: Buprenorphine HCl 2 MG TAB.SUBL SL (06:09)
[2019-10-24] MEDS: 0.9% Saline Lock 10 ML Syringe IV ×2 (06:10→08:51)
--- NOTE | 2019-10-24 08:00 | DCINST_ITS ---
- Discharge Diagnoses Current Active Problems: Current Active and Chronic Problems (Last Updated 10/22/19 @ 05:[address] Nico Herrera MD) Narcotic withdrawal (Acute) You will use the following diet at home:: Regular Your food should be the consistency of: Regular Discharge Activity: Return to Normal Activity Weight Bearing Status: Full weight bearing Call your doctor if you observe: Fever of 101 or Higher, Shortness of breath, Dizziness, Fainting spells, Chest pain, Increased palpitations (irregular heartbeat), Uncontrolled pain Instructions: ED Unknown Causes of Abdominal Pain Male Allergies/Adverse Reactions: Allergies No Known Allergies Allergy (Verified 10/21/19 06:53) Medications to take at Discharge Famotidine [Pepcid] 20 mg PO BID #30 tab 10/24/19 Ondansetron [Zofran] 8 mg PO Q8H PRN PRN #20 tab 10/24/19 The following prescriptions were given: Famotidine [Pepcid] 20 mg PO BID #30 tab Transmission Status: Pending to [facility] Ondansetron [Zofran] 8 mg PO Q8H PRN PRN #20 tab PRN Reason: Nausea/Vomiting Transmission Status: Pending to [facility] Primary Care Physician: Gualberto Hare III, MD [Primary Care Provider] - As soon as possible Please follow up with your Primary Care Physician in: 2-4 WEEKS. Test Results: Test results from this visit will be discussed in further detail at your follow- up appointment, if applicable. Please Follow Up With: [facility] When: TODAY
[2019-10-24 08:46] VITALS: BP 119/74; PULSE 64; RESP 16; TEMP 37.2; O2SAT 94
[2019-10-24] MEDS: Famotidine 200 MG/20 ML MDV 20 MG in 0.9% Normal Saline (Pres. free 8 ML 330 MG IV (08:51)
--- NOTE | 2019-10-24 10:42 | DS.PCM_ITS ---
Discharge Date and Diagnosis Date of Admission: 10/22/19 Date of Discharge: 10/24/19 - Primary Discharge Diagnosis Acute Problems: #1 acute opioid withdrawal. #2 abdominal pain/nausea and vomiting. Hospital Course and Treatment Operations: None Procedures: None Summary of Care Provided: Patient seen and examined on the day of discharge and appeared to be stable to be discharged home. He has normal abdominal pain. Nausea and vomiting significantly improved. Withdrawal symptoms are better and he was able to sleep last night. His vital signs are stable. The patient is a 24 year old M presented to the emergency room because of abdominal pain, had extensive work-up that revealed no evidence of acute intra- abdominal pathology and patient was interested in admission for medical stabilization for acute opioid withdrawal. Patient had CT scan abdomen and pelvis with IV contrast that showed no evidence of acute intra-abdominal pathology that can explain his abdominal pain. His routine blood work was unremarkable. LFT and lipase were normal. This patient has been following up with Dr. Hare as outpatient for concerns about possibility of having Crohn's disease. Urine drug screen was negative. Blood alcohol level was less than 3. Patient was admitted, started on tapering course of Subutex, PRN Bentyl, Catapres, Neurontin, Vistaril, Imodium, methocarbamol, Zofran and trazodone. He was treated with both IV Zofran and p.o. Zofran PRN for nausea and vomiting as well as IV Pepcid. With above-mentioned treatment, patient symptoms improved. He had normal abdominal pain, nausea and vomiting improved. His withdrawal symptoms also improved with Subutex. Patient was evaluated by [facility] and recommended follow-up with them as outpatient on the day of discharge. Patient discharged home in a stable medical condition, discharged on Zofran PRN for for nausea, discharged on Pepcid twice daily, plan to follow-up with [facility] today, recommended follow-up with PCP in 2 to 4 weeks. - Physical Exam Vitals/I&O's: Vital Signs Temp Pulse Resp BP Pulse Ox 99.0 F 64 16 119/74 94 10/24/19 08:46 10/24/19 08:46 10/24/19 08:46 10/24/19 08:46 10/24/19 08:46 Oxygen Delivery Method Room Air Weight: 135 lb 5.821 oz Body Mass Index (BMI) 21.2 Intake and Output for Last 24 Hours 10/22/19 10/23/19 10/24/19 23:59 23:59 23:59 Intake Total 1596.25 / 1671.25 905 / 1305 520 / 520 Output Total 200 / 200 Balance 1596.25 / 1571.25 705 / 1105 520 / 520 General: Alert, Oriented x3, Cooperative, No apparent distress HEENT: Atraumatic, PERRLA, EOMI, Normocephalic Oral: Moist Mucosa, No Gingival or Mucosal Lesions/ Ulcerations Neck: Supple, No JVD, Negative Carotid Bruits, Trachea Midline, Thyroid Normal Size and Texture Lungs: Clear to auscultation, Normal air movement, No rhonchi, No wheeze, No rales Cardiovascular: Regular rate, Regular Rhythm, Normal S1, Normal S2, PMI Normal Abdomen: Bowel Sounds Present, Soft, Non Tender, Non-Distended, No Hepato- splenomegaly Extremities: No clubbing, No cyanosis, No edema Skin: No rashes, No breakdown Lymphatic: No Cervical, Supraclavicular, or Inguinal Adenopathy Neurological: Cranial nerves II-XII grossly intact, Neuro grossly intact Psych/Mental Status: Normal Affect, Appropriate Discharge Activity: Return to Normal Activity Weight Bearing Status: Full weight bearing Call your doctor if you observe: Fever of 101 or Higher, Shortness of breath, Dizziness, Fainting spells, Chest pain, Increased palpitations (irregular heartbeat), Uncontrolled pain Home Medications: Medications to take at Discharge Famotidine [Pepcid] 20 mg PO BID #30 tab 10/24/19 Ondansetron [Zofran] 8 mg PO Q8H PRN PRN #20 tab 10/24/19 Following Prescrptions Were Given to Patient: Famotidine [Pepcid] 20 mg PO BID #30 tab Transmission Status: Received by [facility] Ondansetron [Zofran] 8 mg PO Q8H PRN PRN #20 tab PRN Reason: Nausea/Vomiting Transmission Status: Received by [facility] Primary Care Physician: Gualberto Hare III, MD [Primary Care Provider] - As soon as possible Please follow up with your Primary Care Physician in: 2-4 WEEKS. Please Follow Up With: [facility] When: TODAY Patient Instructions: ED Unknown Causes of Abdominal Pain Male Disposition: Home Minutes spent on discharge:: 28 Patient Condition:: Stable Medical Necessity - Tobacco Use Smoking Status: Never smoker Meaningful Use Info Meaningful Use Diagnoses (Choose all that apply): None applicable Inpatient E&M: 29297 Disch Hosp
== END 2019-10-24 09:38 | disposition home or self-care (01) | DRG 897 ==
LOC: ED 03:56 → MS3 05:31
PROVIDERS: Admitting Provider Hospitalist; Emergency Provider Emergency Medicine; PCP Family Medicine; Referring Provider Hospitalist; Visit Provider Hospitalist
DX: F11.23 Opioid dependence with withdrawal (principal); F41.9 Anxiety disorder, unspecified; F32.9 Major depressive disorder, single episode, unspecified; Z87.891 Personal history of nicotine dependence
CPT/HCPCS: 82962; 97802; 99284; J7030; A4216; J2405; J3490

== ENCOUNTER 2022-02-18 15:21 | Emergency (ER) | payer SELFPAY ==
[2022-02-18 15:21] VITALS: BP 139/104; PULSE 82; RESP 16; TEMP 36.6; O2SAT 99; BMI 27.8
[2022-02-18 15:26] VITALS: RESP 18
--- NOTE | 2022-02-18 15:26 | EDS_ITS ---
HPI History of Present Illness Chief Complaint: Bite Narrative Narrative: 26-year-old male here with concern for infected cat bite. The patient states he attempted to remove a barn cat off his truck approximately 1 week ago. States the cat latched on and bit his second digit of his right hand. States since then he had constant, severe, sharp pain in the second digit of the right hand. He is right-hand dominant. Unknown last tetanus. Old chart reviewed: [facility] Medical History Denies any previous medical history Home Medications amoxicillin 875 mg-potassium clavulanate 125 mg tablet 1 tab PO Q12H 7 days #14 tabs 02/18/22 [Rx Last Taken Unknown] Allergy/AdvReac Type Severity Reaction Status Date / Time No Known Allergies Allergy Verified 02/18/22 15:27 Social History Smoking Status: Never smoker ROS ROS ED ROS Narrative Constitutional: Denies fever HEENT: Denies sore throat Neck: Denies neck pain Cardiovascular: Denies chest pain, syncope Respiratory: Denies shortness of breath GI: Denies nausea vomiting or abdominal pain : Denies changes in urinary habits Musculoskeletal: Denies muscle or joint pain Neurologic: Denies numbness weakness or loss of sensation Skin endorses cat bite EXAM Physical Exam Narrative Exam Narrative: Nursing triage notes reviewed, Vital signs reviewed Constitutional: please see mdm HENT: MMM Eyes: Pupils equal round and reactive to light, Extraocular muscles intact Neck: No stridor, no JVD, full neck ROM Lungs: Clear to auscultation, No wheezing or rales. No increased work of breathing, no conversational dyspnea, no accessory muscle use, no nasal flaring. No respiratory distress noted Heart: Regular rate and rhythm, No murmurs, No rubs and No gallops, 2+ distal pulses (radial, femoral, posterior tibial) in all extremities Abdomen: Soft, there is no tenderness, rigidity, rebound or guarding, no obvious peritoneal signs, no palpable pulsatile abdominal masses, no auscultated abdominal bruit : No CVAT Extremities: No edema, no fusiform swelling of the second digit of the right hand. No tenderness over the flexor tendon of the second his right hand. No obvious deformities. Neuro: Intact 5/5 strength with ok sign (median), intact finger abduction (ulnar) intact wrist extension (radial n). Intact sensation in the radial, ulnar, and median nerve distributions. Skin: 2 small punctate bite wounds noted to the proximal palmar surface of the second digit, no crepitus or bullae Const Vital Signs: 02/18/22 15:21 02/18/22 15:26 Temperature 97.8 F Temperature Source Temporal Pulse Rate 82 Respiratory Rate 16 18 Blood Pressure 139/104 H Blood Pressure Mean 115 Pulse Ox 99 Oxygen Delivery Method Room Air Room Air MDM MDM MDM Narrative Medical decision making narrative: 26-year-old male here with concern for infected cat bite. Patient was hemodynamically stable, afebrile. There is no lymphangitic streaking exam without evidence of flexor tenosynovitis, no crepitus or bullae to suggest necrotizing fasciitis. No obvious overlying cellulitis. Given the patient was bitten by cat I did prescribe prophylactic antimicrobial therapy in form of Augmentin. Gave the patient strict return precautions and follow-up instructions. Shared decision making: I had a long discussion with the patient and or visitors regarding risk/benefits of further testing or admission. They decided to forego any further testing or admission. They are aware of of the risk/benefits inherent in this decision and have voiced understanding. Discharge Plan Triage Chief Complaint: Bite ED Provider: Jony Castaneda Dx/Rx/DC Orders Clinical Impression: Cat bite Instructions: Animal Bites and Scratches Prescriptions: New amoxicillin-pot clavulanate 875-125 mg tablet 1 tab PO Q12H 7 Days Qty: 14 0RF Primary Care Provider: Care Physician,No Primary Referrals: Malgorzata Amaya MD [Med Staff - Clinical Provider Trainer] - NOT,DEFINED [Non-Staff] - Activity Restrictions/Additional Instructions: Please take antibiotics as prescribed. Please take Tylenol, ibuprofen as needed for further pain and inflammation control. Please return if cannot tolerate antibiotics by mouth. Please return if develop swelling in your finger, you cannot bend your finger forward, he developed tenderness along the palmar surface of your finger. Disposition Disposition: Home, Self Care
[2022-02-18] MEDS: Amox/Clavulanate 875 MG Tablet PO (16:09)
[2022-02-18 16:10] VITALS: RESP 18
== END 2022-02-18 16:12 | disposition home or self-care (01) ==
PROVIDERS: Emergency Provider Emergency Medicine; Visit Provider Emergency Medicine
DX: S61.451A Open bite of right hand, initial encounter (principal); W55.01XA Bitten by cat, initial encounter
CPT/HCPCS: 99283

== ENCOUNTER 2024-10-19 17:06 | Emergency (ER) | payer SELFPAY ==
[2024-10-19 17:07] VITALS: BP 108/77; PULSE 87; RESP 18; TEMP 36.9; O2SAT 100; BMI 22.4
--- NOTE | 2024-10-19 17:45 | US_ITS ---
PROCEDURE: TESTICULAR WITH ARTERIAL FLOW 10/19/2024 REASON FOR EXAM: PAIN AND SWELLING OF L TESTICLE TECHNIQUE: Saldivar scale imaging and color and spectral Doppler analysis of the scrotal contents. COMPARISON: Same day CT abdomen pelvis FINDINGS: RIGHT testicle: 4.9 x 2.6 x 2.1 cm Mildly heterogeneous echotexture. No intratesticular mass. Right epididymis: Unremarkable LEFT testicle: 4.6 x 3.2 x 2.1 cm Mildly heterogeneous echotexture. No intratesticular mass. Left epididymis: Mildly increased hypervascularity. Other findings: Small right hydrocele. No large varicocele. DOPPLER FINDINGS: Symmetric, mild hypervascularity visualized on color doppler blood flow signal at both testes. Normal arterial inflow and venous outflow waveforms at both testes. US/Testicular with Arterial Flow IMPRESSION: Mildly heterogeneous bilateral testes and left epididymis, which can be seen wi th epididymitis/orchitis. Clinical correlation recommended. Reading Location: [id number]
--- NOTE | 2024-10-19 18:03 | EX.ED.GUMALE ---
HPI History of Present Illness Chief Complaint: Male Pain/Injury Informant: patient Pain Onset: Days Context: Gradual Onset Timing: Continuous Current Severity: Moderate Maximum Severity: Moderate Narrative Narrative: 29-year-old male no significant medical or surgical history. Patient states he has had about 6-day history of left testicular pain events are gradually swelling. This all began on Wednesday. He also developed a fever. He has now developed left ear pain and swelling and lower abdominal pain. Denies any vomiting or diarrhea. No trauma to his abdomen or testicle. No prior history. He has been taking ibuprofen. He denies any history of STD Prior similar symptoms: No Recent Illness/Hospitalization: No PFSH PFSH Medical History Denies any previous medical history Home Medications ?Medication ?Instructions ?Recorded ?Last Taken ?Type dextroamphetamine-amphetamine ER 1 cap PO DAILY 10/19/24 Unknown History 15 mg 24hr capsule,extend release doxycycline hyclate 100 mg capsule 100 mg PO BID 10 days #20 caps 10/19/24 Unknown Rx Allergy/AdvReac Type Severity Reaction Status Date / Time amoxicillin Allergy Nausea Verified 10/19/24 17:07 Social History Smoking Status: Never smoker ROS ROS ED ROS Narrative Left testicular pain and swelling. Lower abdominal pain. Fever. Constitutional Constitutional ED: Reports fever(s) Eyes Eyes: Denies blurry vision ENT ENT ED: Denies ear pain Cardiovascular Cardiovascular: Denies chest pain Respiratory/Chest Respiratory/Chest: Denies cough or dyspnea Gastrointestinal Gastrointestinal: Reports abdominal pain; Denies constipation, diarrhea, melena, nausea or vomiting Genitourinary Genitourinary ED: Reports other Details: Left testicular pain and swelling ; Denies dysuria, hematuria or urinary frequency Musculoskeletal Musculoskeletal: Denies arthralgias or back pain Integumentary Denies abscess Neurologic Neurologic: Denies headache(s) Psychiatric Psychiatric: Denies anxiety Endocrine Endocrinology: Denies polydipsia Hematologic/Lymphatic Hematologic/Lymphatic: Denies easy bleeding, easy bruising or lymphadenopathy Allergic/Immunologic Allergic/Immunologic ED: Denies mouth swelling, tongue swelling or urticaria EXAM Physical Exam Narrative Exam Narrative: 29-year-old male vital signs stable afebrile. Sitting upright in bed. Accompanied by his significant other. H EENT exam pupils round react light. Mytrex members. Neck nontender no lymphadenopathy. Lungs clear to auscultation bilateral. Heart regular rhythm rate about 85 no murmur. Chest wall ribs nontender. Abdomen soft nondistended normal bowel sounds no peritoneal signs. Periumbilical tenderness. No hernia or mass. Right upper right lower quadrant unremarkable. No signs of trauma. No distention. External exam circumcised male. Penis and shaft nontender. No inguinal lymphadenopathy no hernia or mass. Left testicle is swollen and tender consistent with orchitis. Moving all 4 extremities. Nontender no edema. Back nontender. Neurologically is awake and alert. Const Vital Signs: 10/19/24 17:07 10/19/24 19:38 Temperature 98.4 F Temperature Source Oral Pulse Rate 87 73 Respiratory Rate 18 18 Blood Pressure 108/77 122/78 H Blood Pressure Mean 87 92 Pulse Ox 100 99 Oxygen Delivery Method Room Air Room Air Positive well nourished and well developed; Negative for obese, cachectic, contractures or unkempt General Appearance ED: well developed and NAD; Negative for unkempt, cachectic, contractures or pallor Nutritional Appearance: Negative for cachectic or obese HEENT Reports moist mucous membranes normocephalic and atraumatic Eyes PERRL and EOMs intact bilaterally Neck no lymphadenopathy, supple and no JVD Resp normal respiratory effort and clear to auscultation bilaterally Cardio regular rate, regular rhythm, S1 normal heart sound, S2 normal heart sound and no murmurs GI non-distended and no masses; Negative for non-tender GI Narrative: Periumbilical tenderness. Inspection: Negative for abdominal distention Auscultation: normoactive bowel sounds Palpation: soft and tender; Negative for guarding, hepatomegaly or splenomegaly no CVA tenderness Back/Spine no CVA tenderness General Back: Negative for CVA tenderness Cervical Spine: Negative for cervical spine tenderness Thoracic Spine / Upper Back: Negative for thoracic spinal tenderness Lumbar Spine / Lower Back: Negative for lumbar spinal tenderness Extremity normal to inspection General Extremety ED: Negative for edema, pulses abnormal or tenderness General Extremity: Negative for edema or pulses abnormal Neuro oriented x3, CN's II-XII intact bilaterally, moves all extremities and no focal motor deficits Sensorium / Orientation: alert, oriented to person, oriented to place and oriented to time; Negative for orientation impaired or confused Motor Exam: strength 5/5 throughout Psych mental status grossly normal Appearance: Negative for unkempt Mood & Affect: depressed Thought Process: normal thought process Thought Content: normal thought content Skin General Skin Exam: Negative for jaundice or pallor Lesions: no lesions Rashes: no rashes MDM MDM MDM Narrative Medical decision making narrative: 28-year-old male suspected left orchitis. I am obtaining screening labs a UA and a testicular ultrasound due to the abdominal pain he is having even though it could be referred pain he is having abdominal tenderness and also obtain a CAT scan of his abdomen. Be treated with IV morphine, Toradol and Zofran. Repeat exam patient is doing better of the pain medication. He will be started on doxycycline 100 twice daily for 10 days. Treated for left orchitis. Follow-up with urology. Return if worse. Motrin Tylenol for pain. We went over his test results. His CT was negative. His abdomen is benign currently. History & Record Review Discussion w/independent historian: Patient and Family Additional record(s) reviewed:: No prior records Lab Data Attestation: I reviewed the patient's lab results. Lab results narrative: CBC shows a white count of 14.1. H&H 13 and 38. Platelets 244. Electrolytes show sodium 140. Gap 12. BUN and creatinine of 14 and 0.6. Glucose 96. Liver enzymes normal. CAT scan of the abdomen with IV contrast showed no acute abnormality. Labs: Laboratory Results - last 24 hr 10/19/24 10/19/24 18:10 19:20 WBC 14.1 H RBC 4.44 L Hgb 13.2 Hct 38.0 L MCV 85.6 MCH 29.7 MCHC 34.7 RDW Std Deviation 38.0 RDW Coeff of Monalisa 12.1 Plt Count 244 MPV 11.4 Immature Gran % (Auto) 0.400 Neut % (Auto) 81.9 H Lymph % (Auto) 10.5 L [place] % (Auto) 6.7 Eos % (Auto) 0.3 Baso % (Auto) 0.2 Absolute Neuts (auto) 11.5 H Absolute Lymphs (auto) 1.48 Nucleated RBC % 0 Sodium 140 Potassium 4.0 Chloride 105 Carbon Dioxide 22.7 Anion Gap 12 BUN 14 Creatinine 0.69 L Estim Creat Clear Calc 140.47 Est GFR (MDRD) Non-Af 128 BUN/Creatinine Ratio 19.8 Glucose 96 Calcium 9.3 Total Bilirubin 0.35 AST 21 ALT 15 Alkaline Phosphatase 78 Total Protein 7.3 Albumin 4.4 Globulin 2.9 Albumin/Globulin Ratio 1.5 Urine Color Yellow Urine Clarity Sl. Cloudy Urine pH 8.0 Ur Specific [place] 1.010 Urine Protein 15 H Urine Glucose (UA) Normal Urine Ketones 5 H Urine Occult Blood Negative Urine Nitrite Negative Urine Bilirubin Negative Urine Urobilinogen Normal Ur Leukocyte Esterase Negative Radiography Diagnostic Testing: Clinical Impression(s) from Imaging Studies Testicular Ultrasound 10/19/24 17:45 IMPRESSION: Mildly heterogeneous bilateral testes and left epididymis, which can be seen with epididymitis/orchitis. Clinical correlation recommended. Reading Location: [facility] Abdomen/Pelvis CT 10/19/24 18:26 IMPRESSION: UNREMARKABLE CONTRAST-ENHANCED CT OF THE ABDOMEN AND PELVIS Reading Location: [facility] Discharge Plan Triage Chief Complaint: Male Pain/Injury ED Provider: Judah Roca Dx/Rx/DC Orders Clinical Impression: Orchitis, left Instructions: ED Orchitis Prescriptions: New doxycycline hyclate 100 mg capsule 100 mg PO BID 10 Days Qty: 20 0RF No Action dextroamphetamine-amphetamine 15 mg capsule,extended release 24hr 1 cap PO DAILY Primary Care Provider: Care Physician,No Primary Referrals: Fracisco Brannon MD [Med Staff - Active Staff] - 1 Week if not improving Care Physician,No Primary [Primary Care Provider] - Activity Restrictions/Additional Instructions: Motrin and Tylenol for pain. Scrotal support. Antibiotic doxycycline twice a day for 10 days. Return if doing a lot worse or follow-up with the urologist if not improving. This should progressively get better with antibiotic. Print Language: Haitian Disposition Disposition: Home, Self Care
[2024-10-19] MEDS: Ketorolac 30 MG/ML Syringe IV (18:13)
--- NOTE | 2024-10-19 18:26 | CT_ITS ---
PROCEDURE: ABDOMEN/PELVIS W IV CONT ONLY N/A REASON FOR EXAM: ABD PAIN TECHNIQUE: ABDOMEN/PELVIS W IV CONT ONLY Coronal and Sagittal reconstruction series were provided. CONTRAST: Isovue 370 VOLUME: 100 mL One or more dose reduction techniques were used (e.g., Automated exposure control, adjustment of the mA and/or kV according to patient size, use of iterative reconstruction technique. RADIATION DOSE SUMMARY: DLP: 520 mGycm COMPARISON: CT abdomen pelvis 10/21/2019 FINDINGS: Lung bases: Unremarkable. Liver: Normal in size without suspicious hepatic mass. The major portal veins are patent. No biliary ductal dilation. Gallbladder: No radiopaque stones within the gallbladder. Spleen: Normal in size. Pancreas: Unremarkable. Adrenals: No adrenal mass. Kidneys: No hydronephrosis or nephrolithiasis. Bladder: Mildly distended and unremarkable. Reproductive Organs: Unremarkable. Bowel: The bowel loops are nondilated. No ascites or pneumoperitoneum. Normal appendix. Lymph nodes: No suspicious lymph node enlargement. Vasculature: The abdominal aorta and IVC are normal. Bones: No suspicious lesion. CT/Abdomen/Pelvis W IV Cont ONLY IMPRESSION: UNREMARKABLE CONTRAST-ENHANCED CT OF THE ABDOMEN AND PELVIS Reading Location: [id number]
[2024-10-19 18:45] LABS: AST(SGOT) 21 U/L (<=37); Alanine Aminotransfer ALT/SGPT 15 U/L (<=46); Albumin, Serum 4.4 g/dL (3.5-5.0); Alkaline Phosphatase 78 U/L (40-129); Anion Gap 12 (5-15); BUN 14 mg/dL (4-19); BUN/Creat Ratio 19.8 RATIO (10-20); Calcium,Total 9.3 mg/dL (7.6-11.0); Carbon Dioxide 22.7 mmol/L (21.0-32.0); Chloride 105 mmol/L (98-108); Estimated Creatinine Clearance 140.47 ml/min (50-250); Globulin 2.9 g/dL (2.2-4.2); Glucose 96 mg/dL (70-99); Potassium 4.0 mmol/L (3.3-5.1)
[2024-10-19 18:51] LABS: Hematocrit 38.0 % (40-54); Hemoglobin 13.2 g/dL (13.0-16.5); Immature Granulocytes Count 0.060 X10^3/uL (0.0-0.0); Mean Corp Hgb Conc 34.7 g/dL (32-36); Mean Corpuscular Volume 85.6 fL (80-94); Mean Platelet Vol. 11.4 fl (6.2-12.0); NRBC Flagged by Analyzer 0 % (0-5); Platelet Count 244 K/mm3 (150-450); RBC Distribution Width CV 12.1 % (11.6-14.6); RBC Distribution Width SD 38.0 fl (35.1-43.9); Red Blood Count 4.44 M/mm3 (4.6-6.2); White Blood Count 14.1 K/mm3 (4.4-11.0)
[2024-10-19 19:32] LABS: Mucous, Urine 0 SEEN /hpf (<or=2+); Red Blood Cells-Urine 0 SEEN /hpf (0-5); Squamous Epithelial Cells - UA 0 SEEN /hpf (0-5)
[2024-10-19 19:38] VITALS: BP 122/78; PULSE 73; RESP 18; O2SAT 99
[2024-10-19 19:43] LABS: Color, Urine Yellow (Yellow); Glucose, Dipstick Normal (Normal); Ketone-Dipstick 5 mg/dl (Negative); Leukocyte Esterase-Dipstick Negative /ul (Negative); Nitrite-Dipstick Negative (Negative); Occult Blood-Urine Negative /ul (Negative); Protein-Dipstick 15 mg/dl (Negative); Specific Gravity, Urine 1.010 (1.002-1.030); Urine Bilirubin Dipstick Negative (Negative)
[2024-10-19 20:25] VITALS: BP 118/79; PULSE 77; RESP 16; TEMP 36.9; O2SAT 98
== END 2024-10-19 20:28 | disposition home or self-care (01) ==
PROVIDERS: Emergency Provider Emergency Medicine; Visit Provider Emergency Medicine
DX: N45.2 Orchitis (principal)
CPT/HCPCS: 74177; 76870; 80053; 81001; 85025; 93976; 96374; 96375; 96376; 99284; Q9967; A4216; J2405